=== PATIENT | female | born 1935 | race Caucasian/White ===

== ENCOUNTER 2016-10-01 18:50 | Emergency (ER) | payer MEDICARE, OTHER ==
[2016-10-01 19:00] VITALS: BP 168/78
--- NOTE | 2016-10-01 19:54 | EDM.PDOC ---
ED HPI GENERAL MEDICAL PROBLEM - General Chief Complaint: Respiratory Problem Stated Complaint: COUGH Time Seen by Provider: 10/01/16 19:33 Source of Information: Reports: Patient History Limitations: Reports: No Limitations - History of Present Illness INITIAL COMMENTS - FREE TEXT/NARRATIVE: Patient presents with cough for 48 hours and worse today. She has felt tired and fatigued. Not aware of any fever but 99 here tonight. She has really been coughing a lot tonight with yellow and green production. No chest pain, abdominal pain, vomiting or diarrhea. She has had pneumonia a few years ago. - Related Data Allergies Allergy/AdvReac Type Severity Reaction Status Date / Time doxycycline Allergy Cannot Verified 10/01/16 19:02 Remember propoxyphene Allergy Nausea and Verified 10/01/16 19:02 [From Darvocet-N 100] Vomiting Sulfa (Sulfonamide Allergy Cannot Verified 10/01/16 19:02 Antibiotics) Remember Home Meds: Home Meds Acetaminophen [Acetaminophen Extra Strength] 1,000 mg PO TID PRN 10/01/16 [ History] Calcium Carbonate/Vitamin D3 [Calcium 1,000 + D3 Caplet] 1 tab PO DAILY [History] Carvedilol [Coreg] 12.5 mg PO DAILY 10/01/16 [History] Gabapentin [Neurontin] 100 mg PO BEDTIME 10/01/16 [History] Hydrocortisone 20 mg PO 1200,1800 10/01/16 [History] Melatonin 3 mg PO BEDTIME 10/01/16 [History] Multivit-Min/FA/Lycopene/Lut [Centrum Silver Tablet] 1 each PO 1200 10/01/16 [ History] Omeprazole 20 mg PO DAILY 10/01/16 [History] Polyethylene Glycol 3350 [Miralax] 17 gm PO BID PRN 10/01/16 [History] Vit A/Vit C/Vit E/Zinc/Copper [Preservision] 1 each PO DAILY 10/01/16 [History] amLODIPine [Norvasc] 5 mg PO DAILY 10/01/16 [History] Social & Family History - Tobacco Use Smoking Status *Q: Never Smoker Second Hand Smoke Exposure: No - Caffeine Use Caffeine Use: Reports: Coffee, Soda, Tea - Recreational Drug Use Recreational Drug Use: No ED ROS GENERAL - Review of Systems Review Of Systems: See Below Constitutional: Reports: Malaise, Weakness, Fatigue. Denies: Chills, Diaphoresis, Decreased Appetite HEENT: Denies: Throat Pain, Vision Change Respiratory: Reports: Cough, Sputum. Denies: Shortness of Breath Cardiovascular: Denies: Chest Pain, Edema, Lightheadedness, Syncope GI/Abdominal: Denies: Abdominal Pain, Vomiting : Denies: Discharge, Dysuria, Frequency, Urgency Musculoskeletal: Reports: No Symptoms Skin: Denies: Cyanosis, Jaundice, Mottled, Pallor, Diaphoresis Neurological: Denies: Confusion, Seizure, Syncope Psychiatric: Denies: Agitation, Anxiety, Confusion ED EXAM, GENERAL - Physical Exam Exam: See Below Exam Limited By: No Limitations General Appearance: Alert, WD/WN, No Apparent Distress Eye Exam: Bilateral Eye: EOMI, Normal Inspection, PERRL Ears: Normal External Exam, Hearing Grossly Normal Nose: Normal Inspection, No Blood Throat/Mouth: Normal Lips, Normal Voice, No Airway Compromise Head: Atraumatic, Normocephalic Neck: Supple, Non-Tender, Full Range of Motion Respiratory/Chest: No Respiratory Distress, No Accessory Muscle Use, Crackles ( right lung base), Wheezing (expiratory wheezes right lung base and sporadic elsewhere), Other (Frequent, deep cough) Cardiovascular: Normal Peripheral Pulses, Regular Rate, Rhythm, No Edema, No JVD , No Murmur Peripheral Pulses: 2+: Carotid (L), Carotid (R), Radial (L), Radial (R), Dorsalis Pedis (L), Dorsalis Pedis (R) GI/Abdominal: Normal Bowel Sounds, Soft, Tender (ruq) Back Exam: CVA Tenderness (R). No: CVA Tenderness (L) Extremities: Normal Range of Motion, No Pedal Edema Neurological: Alert, Oriented, Normal Cognition, No Motor/Sensory Deficits Psychiatric: Normal Affect, Normal Mood Skin Exam: Warm, Dry, Intact, Normal Color, No Rash Course - Vital Signs Last Recorded V/S: Last Vital Signs Temp 99.0 F 10/01/16 18:55 Pulse 81 10/01/16 18:55 Resp 15 10/01/16 18:55 BP 168/78 H 10/01/16 18:55 Pulse Ox 94 L 10/01/16 18:55 - Orders/Labs/Meds Orders: Active Orders 24 hr Category Date Time Status Chest 2V [CR] Stat Exams 10/01/16 19:20 Ordered BMP [BASIC METABOLIC PANEL,BMP] [CHEM] Stat Lab 10/01/16 19:20 Ordered UA W/MICROSCOPIC [URIN] Stat Lab 10/01/16 19:34 Uncollected Labs: Laboratory Tests 10/01/16 Range/Units 19:34 WBC 6.2 (5.0-10.0) 10^3/uL RBC 4.66 (3.80-5.50) 10^6/uL Hgb 13.5 (12.0-16.0) g/dL Hct 40.7 (37.0-47.0) % MCV 87.4 (82.0-92.0) fL MCH 28.9 (27.0-31.0) pg MCHC 33.1 (32.0-36.0) g/dL RDW 12.0 (11.5-14.5) % Plt Count 409 H (150-300) 10^3/uL MPV 7.4 (7.4-10.4) fL Neut % (Auto) 53.5 (50.0-70.0) % Lymph % (Auto) 24.7 (20.0-40.0) % Bay % (Auto) 20.3 H (2.0-8.0) % Eos % (Auto) 0.9 L (1.0-3.0) % Baso % (Auto) 0.6 (0.0-1.0) % Neut # (Auto) 3.3 (2.5-7.0) 10^3/uL Lymph # (Auto) 1.5 (1.0-4.0) 10^3/uL Bay # (Auto) 1.3 H (0.1-0.8) 10^3/uL Eos # (Auto) 0.1 (0.1-0.3) 10^3/uL Baso # (Auto) 0.0 (0.0-0.1) 10^3/uL - Re-Assessments/Exams Free Text/Narrative Re-Assessment/Exam: 10/01/16 20:23 WBC 6, UA shows evidence of UTI. CXR doesn't confirm pneumonia but clinically she has an early right low lung pneumonia. Discussed findings and treatment plan with patient and her daughter. With no elevated WBC or significant fever, we discussed that she should be okay to treat this outpatient but if worsening should be rechecked. Patient stable throughout ER course and discharged to home. Departure - Departure Time of Disposition: 20:21 Disposition: Home, Self-Care 01 Condition: good Clinical Impression: CAP (community acquired pneumonia) UTI (urinary tract infection) Qualifiers: Urinary tract infection type: acute cystitis Hematuria presence: without hematuria Qualified Code(s): N30.00 - Acute cystitis without hematuria - Discharge Information Instructions: Community-Acquired Pneumonia, Adult, [id number] Forms: ED Department Discharge Additional Instructions: 1. Drink 8 cups of water daily. 2. Take the Levaquin as directed. 3. Use the Robitussin DM as needed to help control your cough and loosen the phlegm. 4. Recheck with your PCP in 2-3 days if not improving or sooner if worsening. 5. Return to ER if needed. - My Orders Last 24 Hours: My Active Orders 10/01/16 19:20 Chest 2V [CR] Stat BMP [BASIC METABOLIC PANEL,BMP] [CHEM] Stat 10/01/16 19:34 UA W/MICROSCOPIC [URIN] Stat - Assessment/Plan Last 24 Hours: My Active Orders 10/01/16 19:20 Chest 2V [CR] Stat BMP [BASIC METABOLIC PANEL,BMP] [CHEM] Stat 10/01/16 19:34 UA W/MICROSCOPIC [URIN] Stat
[2016-10-01] MEDS: Levofloxacin 500 MG Tab PO SCH ×2 (20:25→20:26)
[2016-10-01] MEDS: guaiFENesin/Dextromethorphan 100-10 MG/5 ML Soln 5 ML Cup PO PRN ×2 (20:26→20:27)
== END 2016-10-01 20:55 | disposition home or self-care (01) ==
LOC: KA.ED 18:50
DX: J18.9 Pneumonia, unspecified organism (principal); N39.0 Urinary tract infection, site not specified; Z79.899 Other long term (current) drug therapy; Z88.2 Allergy status to sulfonamides; Z88.1 Allergy status to other antibiotic agents; Z88.6 Allergy status to analgesic agent
CPT/HCPCS: 36415; 71020; 80048; 81001; 85025; 87086; 87088; 87186; 99283; A9270